=== PATIENT | male | born 1975 | race Caucasian/White ===

== ENCOUNTER 2022-08-15 16:30 | Emergency (ER) | payer MEDICAID ==
[~2022-08-15] VITALS: Ht 167.6 cm; Wt 65.0 kg
[2022-08-15 17:03] VITALS: BP 119/68
[2022-08-15] MEDS ORDERED: IBUP-2029 MT (18:14)
== END 2022-08-15 19:01 | disposition home or self-care (01) ==
LOC: ER 16:49
DX: M72.2 Plantar fascial fibromatosis (principal)
CPT/HCPCS: 99282